=== PATIENT | female | born 2000 | race African-American/Black ===

== ENCOUNTER 2020-11-18 13:04 | Emergency (ER) | payer MEDICAID ==
[~2020-11-18] VITALS: Ht 165.1 cm; Wt 58.0 kg
[2020-11-18] MEDS ORDERED: ACETAMINOPHEN 325MG TABLET PO STA (13:19)
[2020-11-18] MEDS ORDERED: SODIUM CHLORIDE 0.9% 1,000 ML IV ONE (13:30)
[2020-11-18 13:47] LABS: BASOPHILS % 0.8 % (0.0-2.0); EOSINOPHILS % 0.7 % (0.0-5.0); HEMATOCRIT. 36.7 % (36.0-48.0); HEMOGLOBIN. 12.4 g/dL (12.0-16.0); LYMPHOCYTES % 37.3 % (20.0-50.0); MEAN CORPUSCULAR HEMOGLOBIN 29.9 pg (28.0-32.0); MEAN CORPUSCULAR VOLUME 88.8 fL (81.0-99.0); MONOCYTES % 7.5 % (2.0-8.0); NEUTROPHILS % 53.7 % (40.0-76.0); PLATELET 195 x1000/uL (130-400); RED BLOOD CELL COUNT 4.13 mill/uL (4.2-5.4); RED CELL DISTRIBUTION WIDTH 14.1 % (11.6-14.6)
[2020-11-18 13:54] LABS: CHLORIDE 108 mEq/L (98-107)
[2020-11-18 13:56] LABS: HCG SCREEN NEGATIVE
[2020-11-18 15:22] VITALS: BP 115/75
== END 2020-11-18 16:11 | disposition home or self-care (01) ==
LOC: ER 13:04
DX: R55 Syncope and collapse (principal); R42 Dizziness and giddiness; R51.9 Headache, unspecified; F12.10 Cannabis abuse, uncomplicated
CPT/HCPCS: 36415; 70450; 80053; 81025; 84703; 85025; 93005; 96360; 99285; J7030

== ENCOUNTER 2025-04-29 06:25 | Emergency (ER) | payer SELFPAY ==
[~2025-04-29] VITALS: Ht 170.2 cm; Wt 77.0 kg
[2025-04-29 06:27] VITALS: O2SAT 100
[2025-04-29] MEDS ORDERED: LIDOCAINE HCL 1% 20ML VIAL INFIL ONE (07:15)
[2025-04-29] MEDS: TETANUS, DIPHTHERIA, PERTUSSIS VAC/PF 0.5ML (>10YR OLD) IM ONE (08:34)
[2025-04-29] MEDS ORDERED: TETRACAINE 0.5% OPHTH DROPS 4ML LEFTEYE ONE (09:00)
[2025-04-29] MEDS ORDERED: FLUORESCEIN SODIUM 1MG/STRIP LEFTEYE ONE (09:00)
[2025-04-29 09:12] VITALS: BP 122/84; PULSE 75; RESP 16; TEMP 36.9; O2SAT 99
== END 2025-04-29 09:27 | disposition home or self-care (01) ==
LOC: ER 06:25
DX: S01.112A Laceration without foreign body of left eyelid and periocular area, initial encounter (principal); F12.90 Cannabis use, unspecified, uncomplicated; Y04.0XXA Assault by unarmed brawl or fight, initial encounter; Y93.89 Activity, other specified; Y92.89 Other specified places as the place of occurrence of the external cause; Y99.8 Other external cause status
CPT/HCPCS: 70450; 70486; 90715; 12011; 90471; 99285; J2003; Z7610 ×2

== ENCOUNTER 2025-05-06 11:14 | Emergency (ER) | payer SELFPAY ==
[~2025-05-06] VITALS: Ht 170.2 cm; Wt 77.1 kg
[2025-05-06 11:17] VITALS: PULSE 88; RESP 18; O2SAT 99
[2025-05-06 11:30] VITALS: BP 113/89; TEMP 36.8; O2SAT 99
== END 2025-05-06 11:30 | disposition home or self-care (01) ==
LOC: ER 11:14
DX: S01.112D Laceration without foreign body of left eyelid and periocular area, subsequent encounter (principal); X58.XXXD Exposure to other specified factors, subsequent encounter
CPT/HCPCS: 99281